=== PATIENT | female | born 1960 | race Caucasian/White ===

== ENCOUNTER → 2017-07-21 | Day surgery (SDC) | payer BC ==
--- NOTE | 2017-07-25 19:34 | PATH ---
Surgical Pathology Report Patient Name: SHARMAINE HINES [facility]. Rec. #: [id number] /Age/Gender: 1960 (Age: 56) / F Account: [id number] Location: [facility] Taken: 07/21/2017 Received: 07/21/2017 Reported: 07/25/2017 Physicians: Flako Dan M.D. Specimen(s) Received 0.5 CM ENHANCING MASS LEFT BREAST Clinical History 0.5 cm enhancing mass, left breast on MRI, suspicious Final Diagnosis 0.5 CM ENHANCING MASS, LEFT BREAST ON MRI, BIOPSY: PREDOMINANTLY MATURE ADIPOSE TISSUE AND SOME DENSE FIBROTIC TISSUE. SCANTY BENIGN BREAST TISSUE (DUCTS) PRESENT. Electronically Signed Bianca Hathaway M.D. Gross Description Received in formalin labeled "left breast" are multiple vazquez-yellow, cylindrical portions of fibroadipose tissue ranging from 0.5-0.8 cm in length and averaging 0.4 cm diameter, measuring in aggregate 2 x 2 x 0.4. The specimens are submitted in toto in one cassette. Total formalin fixation time: Between 8 hours. ALEJO/07/22/2017 petra/07/22/2017
== END | disposition home or self-care (01) ==
LOC: FRADUS-SUR 12:52
PROVIDERS: ATTEND Surgery Surgical Oncology
PROC: 0HBU3ZX Excision of Left Breast, Percutaneous Approach, Diagnostic (ICD-10-PCS; principal; 2017-07-21)
DX: N63.21 Unspecified lump in the left breast, upper outer quadrant (principal); N64.9 Disorder of breast, unspecified
CPT/HCPCS: 19085; 77065-TC; 88307-TC; A4648; C1887